=== PATIENT | female | born 1955 | race Caucasian/White ===

== ENCOUNTER 2016-12-28 12:25 | Inpatient (IN) ==
[2016-12-28] MEDS ORDERED: Neostigmine Methylsulfate 3 MG/3 ML SYRINGE ONE (12:44)
[2016-12-28] MEDS ORDERED: Lidocaine -MPF 4% 5 ML AMPUL ONE (12:44)
[2016-12-28] MEDS ORDERED: *HR* Propofol 200 MG/20 ML VIAL IVP ONE (12:44)
[2016-12-28] MEDS ORDERED: Dexamethasone 4 MG/ML VIAL ONE (12:44)
[2016-12-28] MEDS ORDERED: *HR* FentaNYL (PF) 100 MCG/2 ML VIAL ONE (12:44)
[2016-12-28] MEDS ORDERED: *HR* Rocuronium Bromide 50 MG/5 ML VIAL ONE (12:44)
[2016-12-28] MEDS ORDERED: *HR* Midazolam HCl 2 MG/2 ML VIAL ONE (12:44)
[2016-12-28] MEDS ORDERED: *HR* Succinylcholine 200 MG/10 ML VIAL IVP ONE (12:44)
[2016-12-28] MEDS ORDERED: Ondansetron 4 MG/2 ML VIAL ONE (12:44)
[2016-12-28] MEDS ORDERED: Lidocaine -MPF 2% 2 ML VIAL ONE (12:44)
[2016-12-28] MEDS ORDERED: Lidocaine -MPF 1% 2 ML VIAL ID ONE (12:46)
[2016-12-28] MEDS ORDERED: CeFAZolin Pre 2,000 MG/100 ML 2,000 MG/100 ML BAG IVPB ONE (12:46)
[2016-12-28] MEDS ORDERED: Albuterol 2.5 MG/3 ML NEBULIZER IH ONE (12:47)
[2016-12-28] MEDS ORDERED: Ringers Solution, Lactated 1,000 ML IVC SCH (13:00)
[2016-12-28] MEDS ORDERED: *HR* Labetalol 100 MG/20 ML MDV IVP PRN (13:58)
[2016-12-28] MEDS ORDERED: Famotidine 20 MG/2 ML VIAL IVP ONE (13:58)
[2016-12-28] MEDS ORDERED: Metoclopramide 10 MG/2 ML VIAL IVP ONE (13:58)
[2016-12-28] MEDS ORDERED: *HR* HYDROmorphone (PF) 1 MG/ML SYRINGE IVP PRN (13:58)
[2016-12-28] MEDS ORDERED: *HR* Promethazine 25 MG/ML VIAL IVP PRN (13:58)
[2016-12-28] MEDS ORDERED: Gabapentin 300 MG CAPSULE PO STA (13:59)
[2016-12-28] MEDS ORDERED: Acetaminophen IV 1,000 MG/100 ML INFUS..BTL IVPB ONE (13:59)
--- NOTE | 2016-12-28 14:03 | History & Physical Report ---
Date of Encounter: 12/28/16 Time of Encounter: 14:00 24 Hour HP Update - Instructions Instructions: If the History and Physical is less than 30 days old and was completed prior to A.M. admission and or procedure and has NOT been updated on calendar day of procedure please complete this update prior to performing procedure. - Update Patient reports changes in Medical Condition: No Changes in examination, assessment, or condition: No Changes in Medication: No Preop tests/diagnostics Reviewed: Yes Surgery Remains Indicated: Yes Consent for Planned Operative Procedure(s) Verified: Yes - Pre-Operative Checklist Preoperative Checklist Indicated: Yes Prophylactic Antibiotic Ordered: Yes Home Medications Include Beta Stephani: No Is VTE Prophylaxis Indicated?: Yes
--- NOTE | 2016-12-28 14:05 | Anesthesia Evaluation PreOp ---
Date of Encounter: 12/28/16 Time of Encounter: 14:02 - Past History Planned Operation: Lap Hiatal Hernia Repair Cardiac History: Other Pulmonary History: Smoker (quit 2 months ago), Asthma, COPD (maintained on Advair diskus, Albuterol Montelukast), Other (ECHO 10/2015 - LVEF 60%, No SWMA, PFO present with saline contrast injection. 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 RLS maintained on Requip ) Other Medical History: GERD (Hiatal hernia - maintained on Omeprazole), Other ( Celiac sprue [Gluten intolerance]) Anesthesia History: No Prior Anesthetic Complications, Past Anesthesia ( Cataracts 2013, Hyster, Lap Jana), Problems Alcohol Use: rarely Drug use: none Medications and Allergies Duloxetine [Cymbalta] 60 mg PO QAM 05/02/15 [History] Montelukast [Singulair] 10 mg PO DAILY 05/02/15 [History] Aspirin/Dipyridamole [Aggrenox 25 mg-200 mg Capsule] 1 each PO BID 10/15/15 [ History] Albuterol Neb [AccuNeb] 1.25 mg IH Q6H PRN 06/03/16 [History] Dapsone 50 - 75 mg PO DAILY 06/03/16 [History] Fluticasone/Salmeterol [Advair 500-50 Diskus] 1 puff IH BID 06/03/16 [History] Cetirizine HCl [Zyrtec] 10 mg PO DAILY 06/08/16 [History] Omeprazole [PriLOSEC] 40 mg PO BID 08/03/16 [History] Ropinirole [Requip] 1 - 2 mg PO HS PRN 08/03/16 [History] BuPROPion SR (12 HR) [Wellbutrin SR] 100 mg PO DAILY 11/16/16 [History] Brexpiprazole [Rexulti] 3 mg PO DAILY 12/28/16 [History] Allergies egg Adverse Reaction (Verified 12/28/16 13:04) See Comments nausea/vomiting metronidazole [From Flagyl] Adverse Reaction (Verified 12/28/16 13:04) Rash - Meds/Allergy Pre-op Review Medications Reviewed: Yes Allergies Reviewed: Yes Beta Blockers on Current Med List: No Anesthesia Results - Labs Laboratory Tests 12/21/16 12/21/16 12/21/16 12:02 12:02 15:37 WBC 11.4 H Hgb 11.4 L Hct 35.5 Plt Count 316 Sodium 134 L Potassium 4.1 Chloride 100 Carbon Dioxide 22 BUN 15 Creatinine 0.87 Est GFR (Non-Af Amer) > 60 - Imaging EKG: image reviewed (98bpm SR) Anesthesia Exam O2 Sat Height 1.57 m Height 1.57 m Height 1.57 m Weight 85.275 kg Weight 85.275 kg Weight 85.275 kg O2 Sat by Pulse Oximetry 93 O2 Sat by Pulse Oximetry 93 Vital Signs Temp Pulse Resp BP Pulse Ox 97.8 F 93 18 126/68 93 12/28/16 12:46 12/28/16 12:46 12/28/16 12:46 12/28/16 12:46 12/28/16 12:46 Height: 5'2" Weight: 188# BMI = 345 NPO (# of Hours): MNoc - HEENT Pupil (Motor): Pupils equal, EOMI Mallampati: III Teeth: Missing, Edentulous Oral Opening: Greater than 3 - CORD TIRE BUILDER LOC: Oriented CORD TIRE BUILDER Motor: Normal RUE, Normal LUE, Normal RLE, Normal LLE, Normal Face CORD TIRE BUILDER Sensory: Normal: RUE, LUE, RLE, LLE, Face - Cardiac Rhythm: Regular Murmur: None JVD: No - Pulmonary Breath Sounds: bilateral Clear Respiratory Effort: Symmetrical Anesthesia Assess/Plan ASA Score: 3 (OBesity, HTN, Asthma/COPD,) Modified Danielle Scale for Level of Consciousness: Cooperative, oriented, and tranquil Anesthetic Plan: General Monitoring Plan: Standard Monitors Recovery Plan: PACU Anes Supervising Prov Stmt: Pt seen/evaluated, R&B discussed, questions answered and consent obtained. Yu Mendez MD
[2016-12-28] MEDS ORDERED: *HR* HYDROmorphone 2 MG/ML SYRINGE ONE (15:10)
[2016-12-28] MEDS ORDERED: EPHEDrine 50 MG/ML VIAL ONE (15:22)
--- NOTE | 2016-12-28 16:53 | Operative Note ---
Date of procedure: 12/28/16 Pre-op diagnosis: Severe gastroesophageal reflux disease and hiatal hernia Post-op diagnosis: other (An severe gastroesophageal reflux disease and hiatal hernia. Number to esophageal motility disorder) Procedure: #1 laparoscopic repair of hiatal hernia #2 laparoscopic fundoplication (toupee 270) Anesthesia: RAINE Surgeon: Richard Loredo Estimated blood loss (cc): 10 Condition: stable Disposition: PACU Procedure in Detail: After informed consent patient is taken to the major operating suite placed in supine position given adequate general anesthetic. She is then placed into low lithotomy position. The abdomen was prepped and draped in sterile fashion utilizing ChloraPrep standard draping techniques. Timeout is taken Patient is identified. I made a vertical midline incision above the umbilicus and dissected down to level of fascia. I placed 2 traction stitches of 2-0 Vicryl and entered the abdominal cavity initially. I placed a Farrell trocar and insufflated to 15 mmHg pressure CO2. I then placed a 12 trocar in the right upper quadrant and a paddle retractor under the left lobe liver. This was secured with a retractor clamp. I then placed a 10 trocar in the right subxiphoid a 5 trocar in the left subxiphoid and a 10 trocar in the left subcostal. The nasogastric tube was removed and a lighted 56-Norwegian bougie was placed into the esophagus I divided the lesser omentum and the tissue anterior to the esophagus. I then swept the esophagus upwards and lateral and made dissection of the right abimbola of the diaphragm this gave an excellent technical result and I was able to visualize the left crura of the diaphragm at the end of this dissection. Photographic documentation was taken. Then grasp the cardia with a #10 [place] and retracted this to the right and downward. I divided the short gastrics between the cardia and the spleen using Harmonic scalpel and #10 clips. This gave excellent mobility of the cardia. Attention was then turned to the right crura of the diaphragm. I placed a Esteban drain around the gastroesophageal junction retracted the stomach laterally and inferiorly. I then close the hiatal hernia with 3 stitches of 2-0 [place]. I brought the cardia behind the gastroesophageal junction and secured this for the right half of the toupee 270. I placed one stitch between the fundoplication and the stomach just below the gastroesophageal junction. I placed 2 stitches between the fundoplication and the esophagus. I placed one stitch between the fundoplication and the diaphragm just on the right side of the esophagus. This completed the right side of the 270 degree wrap. I then brought the cardia to the left side of the esophagus. I placed one stitch just on the gastric side of the gastroesophageal junction. I placed 2 stitches between the cardia and the esophagus. I placed one stitch between the cardia and the diaphragm. This gave an excellent technical result for 270 degree wrap. There was no bleeding. Total blood loss 10 mL. All trochars were removed photographic documentation was taken. The bougie was removed patient tolerated the procedure well and was transferred to recovery in stable condition. Fascia was closed with 2-0 Vicryl and skin with 4-0 Vicryl.
[2016-12-28] MEDS ORDERED: Ipratropium/Albuterol Neb 3 ML ONE (17:18)
[2016-12-28] MEDS ORDERED: Ipratropium/Albuterol Neb 3 ML IH ONE (17:22)
[2016-12-28] MEDS ORDERED: *HR* Heparin 5,000 UNIT/ML VIAL SQ SCH (18:00)
--- NOTE | 2016-12-28 18:09 | Anesthesia Evaluation Post Op ---
Date of Encounter: 12/28/16 Time of Encounter: 18:07 - Vital Signs Vital Signs: Vital Signs/O2 Sat/Glucose, Most Current Temp Pulse Resp BP Pulse Ox 12/28/16 17:58 98 18 118/73 93 12/28/16 17:48 98.0 F 96 18 130/75 92 12/28/16 17:38 94 18 118/89 93 12/28/16 17:28 100 18 114/71 92 12/28/16 17:18 97.5 F L 106 18 125/98 92 12/28/16 17:08 93 16 124/84 94 12/28/16 16:58 93 16 124/84 94 12/28/16 16:48 97.3 F L 96 16 132/79 96 - Lungs Lungs: Wheezes, Treatment Ordered - Airway Airway: Non-obstructed - Cardiovascular Regular Rate - Mental Status Mental Status: Alert & Oriented, Answers Appropriately, Asleep with brisk response to light stimulation - Pain Pain Scale: 0 Pain Scale used: Numeric (1 - 10) - Nausea Vomiting Nausea Vomiting: Not Present - Hydration Hydration: NPO, Has not voided - Discharge PostOp Status: Transfer Patient to floor Anes Supervising Prov Stmt: Pt seen/evaluated, VSS and pt has met criteria for discharge to floor. 24 continuous pulse ox for overnight ordered. - MD Andrea
[2016-12-28] MEDS ORDERED: rOPINIRole 1 MG TABLET PO PRN (19:01)
[2016-12-28] MEDS ORDERED: *HR* OxyCODONE/APAP 5/325 TABLET PO PRN (19:01)
[2016-12-29] MEDS: Ondansetron 4 MG/2 ML VIAL IVP PRN ×3 (02:32→20:23)
[2016-12-29] MEDS: 0.9 % Sodium Chloride 1,000 ML IVC SCH ×2 (02:34→23:52)
[2016-12-29] MEDS: *HR* Promethazine 25 MG/ML VIAL IVP PRN ×2 (05:02→22:29)
[2016-12-29] MEDS: *HR* Heparin 5,000 UNIT/ML VIAL SQ SCH ×2 (05:07→17:07)
[2016-12-29 05:12] LABS: Basophils % 0.1 %; Hematocrit 32.6 % (35.3-44.9); Hemoglobin 10.3 g/dL (11.5-15.4); Immature Granulocytes % 0.6 % (0-4); Lymphocytes # 1.2 K/mcL (0.6-4.6); Lymphocytes % 5.5 %; Mean Corpuscular HGB Conc 31.6 g/dL (31.6-35.5); Mean Corpuscular Hemoglobin 31.8 pg (28.0-33.3); Mean Corpuscular Volume 100.6 fL (83.0-100.0); Mean Platelet Volume 9.9 fL (9.4-12.4); Monocytes # 2.2 K/mcL (0.0-1.3); Monocytes % 10.2 %; Neutrophils # 17.6 K/mcL (1.6-8.9); Platelet Count 251 K/mcL (140-400); Red Blood Count 3.24 M/mcL (3.82-4.97); Red Cell Distribution Width 12.8 % (11.5-14.5); Segmented Neutrophils % 83.6 %
[2016-12-29 05:28] LABS: BUN/Creatinine Ratio 15 (6-26); Blood Urea Nitrogen 13 mg/dL (7-20); Calcium 8.9 mg/dL (8.6-10.8); Carbon Dioxide 23 mEq/L (19-29); Chloride 103 mEq/L (98-109); Glucose 124 mg/dL (70-99); Osmolality,Calculated 286 (280-300); Potassium 4.3 mEq/L (3.5-4.5); Sodium 137 mEq/L (136-145); eGFR For African Americans > 60 (> 60); eGFR For Non-African Americans > 60 (> 60)
[2016-12-29] MEDS: *HR* OxyCODONE/APAP 5/325 TABLET PO PRN ×3 (08:20→22:19)
[2016-12-29] MEDS: BuPROPion SR (12 HR) 100 MG TABLET PO SCH (08:21)
[2016-12-29] MEDS: (Brexpiprazole [Rexulti] 3 MG) PO SCH (08:22)
[2016-12-29] MEDS: ceFAZolin 2,000 MG in D5% in Water 100 ML IVPB SCH ×2 (09:06→17:07)
--- NOTE | 2016-12-29 13:52 | General Surgery Progress Note ---
Date of Encounter: 12/29/16 Time of Encounter: 13:30 - Assessment and Plan (1) Hiatal hernia without gangrene and obstruction Current Visit: Yes Status: Acute The patient is postoperative day 1 from laparoscopic hiatal hernia repair in 270 degrees partial fundoplication. She has had no reflux. She did have a elevated white blood cell count and some postoperative nausea. We will keep her in the hospital today for observation and hydration. Subjective Narrative: The patient is postoperative day one laparoscopic Seble fundoplication and 270 degree toupee Fundoplication. Last night for the first night many years she had no reflux symptoms. Today she is having difficulty with dry heaves and nausea. She is not vomiting. She is able to drink clear liquids. She denies shakes chills or fever. She denies chest pain. White blood cell count elevated during the postop period likely leukemoid reaction and the margination Objective Vital Signs - Last 8 Hours Temp Pulse Resp BP Pulse Ox 12/29/16 10:07 98.2 F 93 17 137/76 95 12/29/16 08:28 97 12/29/16 06:32 98.1 F 73 17 128/70 97 Intake and Output 12/28/16 12/29/16 12/29/16 23:59 07:59 15:59 Intake Total 960 / 960 1305 / 1305 Output Total 350 / 350 0 / 0 Balance -10 / -10 610 / 610 1305 / 1305 Intake: IV Fluids 545 / 545 0.9 % Sodium Chloride 1, 445 / 445 000 ML @ 50 mls/hr IVC . Q20H BK Rx#:[id number] Ancef 2,000 MG In 100 / 100 Dextrose 5% 100 ML @ 200 mls/hr IVPB Q8HR BK Rx#: [id number] Oral 960 / 960 760 / 760 Output: Urine 350 / 350 0 / 0 Estimated Blood Loss Other: # Voids 3 Weight 84.504 kg Patient Weight 12/29/16 23:59 Weight 84.504 kg - General physical appearance well developed, well nourished - Respiratory normal expansion, normal respiratory effort, clear to percussion, clear to auscultation - Cardiovascular Cardiovascular exam: Present: RRR, no murmurs/rubs/gallops - Neurologic normal coordination, normal sensation - Labs 12/29/16 04:27 12/29/16 04:27 Diabetes panel 12/29/16 Range/Units 04:27 Sodium 137 (136-145) mEq/L Potassium 4.3 (3.5-4.5) mEq/L Chloride 103 (98-109) mEq/L Carbon Dioxide 23 (19-29) mEq/L BUN 13 (7-20) mg/dL Creatinine 0.88 (0.57-1.11) mg/dL Glucose 124 H (70-99) mg/dL Calcium 8.9 (8.6-10.8) mg/dL Calcium panel 12/29/16 Range/Units 04:27 Calcium 8.9 (8.6-10.8) mg/dL Pituitary panel 12/29/16 Range/Units 04:27 Sodium 137 (136-145) mEq/L Potassium 4.3 (3.5-4.5) mEq/L Chloride 103 (98-109) mEq/L Carbon Dioxide 23 (19-29) mEq/L BUN 13 (7-20) mg/dL Creatinine 0.88 (0.57-1.11) mg/dL Glucose 124 H (70-99) mg/dL Calcium 8.9 (8.6-10.8) mg/dL Adrenal panel 12/29/16 Range/Units 04:27 Sodium 137 (136-145) mEq/L Potassium 4.3 (3.5-4.5) mEq/L Chloride 103 (98-109) mEq/L Carbon Dioxide 23 (19-29) mEq/L BUN 13 (7-20) mg/dL Creatinine 0.88 (0.57-1.11) mg/dL Glucose 124 H (70-99) mg/dL Calcium 8.9 (8.6-10.8) mg/dL - VTE Documentation of Mechanical Device: Intermittent pneumatic compression device Consult Discharge Plan - Plan Referrals: Richard Loredo MD [Partnered Physician] - 01/17/17 12:15 pm Carmelita Gallardo MD [Primary Care Provider] -
[2016-12-29] MEDS: *HR* HYDROmorphone (PF) 1 MG/ML SYRINGE IVP PRN ×2 (20:24→23:47)
[2016-12-30] MEDS: *HR* HYDROmorphone (PF) 1 MG/ML SYRINGE IVP PRN (03:58)
[2016-12-30 04:41] LABS: Hematocrit 32.5 % (35.3-44.9); Hemoglobin 10.3 g/dL (11.5-15.4); Mean Corpuscular HGB Conc 31.7 g/dL (31.6-35.5); Mean Corpuscular Hemoglobin 31.7 pg (28.0-33.3); Mean Platelet Volume 9.8 fL (9.4-12.4); Platelet Count 237 K/mcL (140-400); Red Blood Count 3.25 M/mcL (3.82-4.97); Red Cell Distribution Width 12.5 % (11.5-14.5)
[2016-12-30] MEDS: *HR* Heparin 5,000 UNIT/ML VIAL SQ SCH (06:13)
[2016-12-30 07:11] VITALS: BP 130/81
--- NOTE | 2016-12-30 07:13 | Discharge Summary ---
Date of Encounter: 12/30/16 Time of Encounter: 07:10 - Discharge Diagnosis (1) Hiatal hernia without gangrene and obstruction Priority: Primary Status: Acute Comments: The patient underwent Laparoscopic hiatal hernai repair and 270 Toupee fundoplication - Discharge Medications Prescriptions: OxyCODONE/APAP 5/325 [Percocet 5/325 MG] 1 each PO Q4HR PRN #36 tablet PRN Reason: Pain (6-10) Home Medications: Duloxetine [Cymbalta] 60 mg PO QAM 05/02/15 [History] Montelukast [Singulair] 10 mg PO DAILY 05/02/15 [History] Aspirin/Dipyridamole [Aggrenox 25 mg-200 mg Capsule] 1 each PO BID 10/15/15 [ History] Albuterol Neb [AccuNeb] 1.25 mg IH Q6H PRN 06/03/16 [History] Dapsone 50 - 75 mg PO DAILY 06/03/16 [History] Fluticasone/Salmeterol [Advair 500-50 Diskus] 1 puff IH BID 06/03/16 [History] Cetirizine HCl [Zyrtec] 10 mg PO DAILY 06/08/16 [History] Omeprazole [PriLOSEC] 40 mg PO BID 08/03/16 [History] Ropinirole [Requip] 1 - 2 mg PO HS PRN 08/03/16 [History] BuPROPion SR (12 HR) [Wellbutrin SR] 100 mg PO DAILY 11/16/16 [History] Brexpiprazole [Rexulti] 3 mg PO DAILY 12/28/16 [History] OxyCODONE/APAP 5/325 [Percocet 5/325 MG] 1 each PO Q4HR PRN #36 tablet 12/30/16 [Rx] Allergies/Adverse Reactions: Allergies egg Adverse Reaction (Verified 12/28/16 13:04) See Comments nausea/vomiting metronidazole [From Flagyl] Adverse Reaction (Verified 12/28/16 13:04) Rash General Surgery Exam Initial Vital Signs Temp Pulse Resp BP Pulse Ox 97.8 F 93 18 126/68 93 12/28/16 12:46 12/28/16 12:46 12/28/16 12:46 12/28/16 12:46 12/28/16 12:46 - General physical appearance well developed, well nourished, no distress - Cardiovascular Cardiovascular exam: Present: RRR, 15, 16 - Abdomen Abdomen general surgery: Present: bowel sounds present, soft, non tender - Incision Incision: Present: clean and dry - Neurologic Present: CN 2-12 grossly intact, normal coordination, normal sensation - Psychiatric Psychiatric general surgery: Present: appropriate, oriented to person, oriented to place, oriented to time, speech is normal, memory intact Date of admission: 12/28/16 18:32 Primary care physician: Carmelita Gallardo Discharging clinician: Richard Loredo Anticipated date of discharge: 12/30/16 - Patient Status Disposition: Home, Self-Care Condition: Good Functional capacity at discharge: independent ambulation Overall status at discharge: patient is progressing back to baseline - Discharge Instructions Follow Up With: Richard Loredo MD [Partnered Physician] - 01/17/17 12:15 pm Carmelita Gallardo MD [Primary Care Provider] - - Diet and Activity Activity: resume usual activities as tolerated Diet: other (full liquid for 2 weeks) - Hospital Course Hospital course: Ms. Higginbotham is a 61 year old female underwent laparoscopic hiatal hernia repair and 270 fundoplication. She had post-operative nausea and wretching. All symptoms resolved, she is now ready for discharge Time spent discussing smoking cessation with patient: 3 to 10 minutes - Time Spent with Patient Total time spent providing and/or coordinating discharge services: Less than 30 minutes Specific discharge activities: Full liquid diet for 2 weeks, then advance. No bread or fibrous meats Procedures and tests throughout hospitalization: Laparoscopic hiatal hernia repair and 270 Toupee fundoplication Labs on day of discharge: Labs from last 24 hours 12/30/16 04:12 WBC 13.7 H RBC 3.25 L Hgb 10.3 L Hct 32.5 L MCV 100.0 MCH 31.7 MCHC 31.7 RDW 12.5 Plt Count 237 MPV 9.8
[2016-12-30] MEDS: BuPROPion SR (12 HR) 100 MG TABLET PO SCH (07:59)
[2016-12-30] MEDS: *HR* OxyCODONE/APAP 5/325 TABLET PO PRN (07:59)
[2016-12-30] MEDS: (Brexpiprazole [Rexulti] 3 MG) PO SCH (08:00)
== END 2016-12-30 08:23 | disposition home or self-care (01) | DRG 328 ==
LOC: SAMDAY 12:25 → 3ANU 18:32
PROVIDERS: ADMIT Hospitalist; ATTEND Surgery

== ENCOUNTER 2019-07-31 16:48 | Inpatient (IN) ==
[2019-07-31] MEDS ORDERED: *HR* LORazepam 2 MG/ML VIAL IVP ONE (17:06)
[2019-07-31] MEDS ORDERED: diazePAM 10 MG/2 ML SYRINGE IVP STA (18:06)
[2019-07-31 18:40] LABS: Basophils # 0.1 K/mcL (0.0-0.2); Basophils % 0.6 %; Eosinophils # 0.6 K/mcL (0.0-0.6); Eosinophils % 5.8 %; Hematocrit 26.3 % (35.3-44.9); Hemoglobin 8.2 g/dL (11.5-15.4); Immature Granulocytes % 0.3 % (0-4); Lymphocytes # 2.3 K/mcL (0.6-4.6); Lymphocytes % 22.9 %; Mean Corpuscular HGB Conc 31.2 g/dL (31.6-35.5); Mean Corpuscular Hemoglobin 33.1 pg (28.0-33.3); Mean Platelet Volume 9.6 fL (9.4-12.4); Monocytes % 10.5 %; Platelet Count 241 K/mcL (140-400); Red Blood Count 2.48 M/mcL (3.82-4.97); Red Cell Distribution Width 15.3 % (11.5-14.5); Segmented Neutrophils % 59.9 %
[2019-07-31 18:55] LABS: BUN/Creatinine Ratio 20 (6-26); Blood Urea Nitrogen 17 mg/dL (8-23); Calcium 8.6 mg/dL (8.6-10.3); Carbon Dioxide 27 mEq/L (23-29); Chloride 109 mEq/L (98-107); Glucose 91 mg/dL (70-105); Osmolality,Calculated 295 (280-300); Potassium 3.8 mEq/L (3.5-5.1); Sodium 142 mEq/L (136-145); eGFR For African Americans > 60 (> 60); eGFR For Non-African Americans > 60 (> 60)
[2019-07-31 19:00] LABS: Bilirubin,Urine Negative (Negative); Blood,Urine Negative (Negative); Clarity,Urine Clear (Clear); Color,Urine Yellow (Yellow); Glucose,Urine (UA) Normal (Normal); Ketones,Urine Negative (Negative); Leukocyte Esterase,Urine Small (Negative); Nitrite,Urine Negative (Negative); Protein,Urine Negative (Neg-Trace); Urobilinogen,Urine Normal (Normal)
[2019-07-31 19:02] LABS: Bacteria,Urine None Seen per hpf (None-Few); Hyaline Casts,Urine None Seen per lpf (None-Few); RBC,Urine 0-3 per hpf (0-3); Squamous Epithelial Cell,Urine Few per lpf (None-Few)
[2019-07-31] MEDS ORDERED: Naloxone 0.4 MG/ML INJ IVP PRN (21:18)
[2019-07-31] MEDS ORDERED: diazePAM 10 MG/2 ML SYRINGE IVP ONE (22:27)
[2019-08-01] MEDS: rOPINIRole 1 MG TABLET PO SCH ×2 (01:09→20:10)
[2019-08-01 05:20] LABS: Amphetamine Screen,Urine Negative ng/mL (Cutoff=1000); Barbiturate Screen,Urine Negative ng/mL (Cutoff=200); Benzodiazepines Screen,Urine Positive ng/mL (Cutoff=200); Cannabinoid Screen,Urine Negative ng/mL (Cutoff = 50); Cocaine Screen,Urine Negative ng/mL (Cutoff= 300); Opiate Screen,Urine Negative ng/mL (Cutoff=300); Phencyclidine Screen,Urine Negative ng/mL (Cutoff=25)
[2019-08-01 06:46] LABS: Basophils # 0.1 K/mcL (0.0-0.2); Basophils % 0.7 %; Eosinophils # 0.5 K/mcL (0.0-0.6); Eosinophils % 5.6 %; Hematocrit 27.1 % (35.3-44.9); Hemoglobin 8.7 g/dL (11.5-15.4); Immature Granulocytes % 0.4 % (0-4); Lymphocytes # 1.3 K/mcL (0.6-4.6); Lymphocytes % 15.3 %; Mean Corpuscular HGB Conc 32.1 g/dL (31.6-35.5); Mean Corpuscular Hemoglobin 33.5 pg (28.0-33.3); Mean Corpuscular Volume 104.2 fL (83.0-100.0); Mean Platelet Volume 9.5 fL (9.4-12.4); Monocytes % 11.5 %; Neutrophils # 5.7 K/mcL (1.6-8.9); Platelet Count 263 K/mcL (140-400); Red Cell Distribution Width 15.7 % (11.5-14.5); Segmented Neutrophils % 66.5 %; White Blood Count 8.5 K/mcL (4.3-11.1)
[2019-08-01 06:49] LABS: INR 1.1; Prothrombin Time 12.2 Seconds (9.4-12.1)
[2019-08-01 06:52] LABS: Activated Partial Thrombo Time 31.1 Seconds (26.0-36.0)
[2019-08-01 07:01] LABS: BUN/Creatinine Ratio 22 (6-26); Blood Urea Nitrogen 15 mg/dL (8-23); Calcium 8.7 mg/dL (8.6-10.3); Carbon Dioxide 27 mEq/L (23-29); Chloride 106 mEq/L (98-107); Glucose 91 mg/dL (70-105); Magnesium 2.2 mg/dL (1.6-2.6); Osmolality,Calculated 292 (280-300); Phosphorous 4.3 mg/dL (2.7-4.5); Potassium 3.7 mEq/L (3.5-5.1); Sodium 141 mEq/L (136-145); eGFR For African Americans > 60 (> 60); eGFR For Non-African Americans > 60 (> 60)
[2019-08-01 07:04] LABS: % Iron Saturation 17 % (15-50); Iron 47 mcg/dL (50-170); Transferrin 202 mg/dL (203-362)
[2019-08-01 07:17] LABS: Ferritin 272 ng/mL (10-120)
[2019-08-01] MEDS ORDERED: *HR* LORazepam 2 MG/ML VIAL IVP PRN (09:51)
[2019-08-01] MEDS ORDERED: MethylPREDNISolone 40 MG/ML VIAL IVP ONE ×2 (10:01→11:30)
[2019-08-01] MEDS: Acetaminophen 325 MG TABLET PO PRN ×2 (11:35→18:49)
[2019-08-01] MEDS ORDERED: *HR* LORazepam 2 MG/ML VIAL IVP SCH (12:00)
[2019-08-01 13:54] LABS: Creatine Kinase 156 Units/L (30-223)
[2019-08-01 17:55] LABS: C-Reactive Protein < 5 mg/L (Less than 10)
[2019-08-01] MEDS: diazePAM 2 MG TABLET PO SCH ×2 (18:44→20:10)
[2019-08-02] MEDS: diazePAM 2 MG TABLET PO SCH ×3 (08:46→20:23)
[2019-08-02] MEDS: Acetaminophen 325 MG TABLET PO PRN (08:53)
[2019-08-02 09:53] LABS: Hematocrit 27.4 % (35.3-44.9); Hemoglobin 8.6 g/dL (11.5-15.4); Mean Corpuscular HGB Conc 31.4 g/dL (31.6-35.5); Mean Corpuscular Hemoglobin 33.6 pg (28.0-33.3); Mean Platelet Volume 9.7 fL (9.4-12.4); Platelet Count 251 K/mcL (140-400); Red Blood Count 2.56 M/mcL (3.82-4.97); Red Cell Distribution Width 15.7 % (11.5-14.5); White Blood Count 10.2 K/mcL (4.3-11.1)
[2019-08-02 10:18] LABS: Thyroid Stimulating Hormone 1.718 mcIU/mL (0.340-5.600)
[2019-08-02] MEDS ORDERED: *HR* Midazolam HCl 2 MG/2 ML VIAL IVP ONE (10:23)
[2019-08-02] MEDS ORDERED: *HR* FentaNYL (PF) 100 MCG/2 ML VIAL IVP ONE (10:23)
[2019-08-02] MEDS ORDERED: 0.9 % Sodium Chloride 500 ML ONE (10:26)
[2019-08-02 10:28] LABS: Folate 15.2 ng/mL (3.0-16.0)
[2019-08-02] MEDS ORDERED: *HR* Midazolam HCl 2 MG/2 ML VIAL ONE (10:33)
[2019-08-02] MEDS ORDERED: *HR* FentaNYL (PF) 100 MCG/2 ML VIAL ONE (10:33)
[2019-08-02] MEDS ORDERED: Ondansetron 4 MG/2 ML VIAL IVP ONE (10:57)
[2019-08-02] MEDS ORDERED: Ondansetron 4 MG/2 ML VIAL ONE (10:59)
[2019-08-02] MEDS ORDERED: *HR* LORazepam 2 MG/ML VIAL IVP ONE (12:20)
[2019-08-02] MEDS: rOPINIRole 1 MG TABLET PO SCH (20:23)
[2019-08-02] MEDS ORDERED: Scopolamine Patch 1.5 MG PATCH.TD72 TD ONE (21:55)
[2019-08-03 06:53] LABS: Hematocrit 31.4 % (35.3-44.9); Mean Corpuscular HGB Conc 31.8 g/dL (31.6-35.5); Mean Corpuscular Hemoglobin 34.2 pg (28.0-33.3); Mean Corpuscular Volume 107.5 fL (83.0-100.0); Mean Platelet Volume 11.2 fL (9.4-12.4); Platelet Count 229 K/mcL (140-400); Red Blood Count 2.92 M/mcL (3.82-4.97); Red Cell Distribution Width 15.9 % (11.5-14.5); White Blood Count 8.1 K/mcL (4.3-11.1)
[2019-08-03 07:22] VITALS: BP 144/69
[2019-08-03] MEDS: diazePAM 2 MG TABLET PO SCH (08:48)
[2019-08-05 05:00] LABS: Kappa Qnt Free Light Chains 1.94 mg/dL (0.33-1.94); Lambda Qnt Free Light Chains 1.41 mg/dL (0.57-2.63)
[2019-08-05 06:35] LABS: Beta Globulin (PEP) 0.66 g/dL (0.48-1.10)
[2019-08-05 11:40] LABS: IFE Reflexed NOT DONE
== END 2019-08-03 12:00 | disposition home or self-care (01) | DRG 57 ==
LOC: EMEROOARM 16:48 → 2ANU 16:48 → SUATTDRO 21:43 → 2ANU 22:18
PROVIDERS: ADMIT Internal Medicine; ATTEND Family Medicine

== ENCOUNTER 2019-08-29 17:01 | Observation (INO) ==
[2019-08-29] MEDS ORDERED: *HR* LORazepam 2 MG/ML VIAL IVP ONE (18:26)
[2019-08-29] MEDS ORDERED: 0.9 % Sodium Chloride 1,000 ML IVC ONE (19:14)
[2019-08-29] MEDS ORDERED: Haloperidol Lactate 5 MG/ML VIAL IVP ONE (19:25)
[2019-08-29 19:33] LABS: Hematocrit 32.8 % (35.3-44.9); Hemoglobin 10.6 g/dL (11.5-15.4); Mean Corpuscular HGB Conc 32.3 g/dL (31.6-35.5); Mean Corpuscular Hemoglobin 33.1 pg (28.0-33.3); Mean Corpuscular Volume 102.5 fL (83.0-100.0); Mean Platelet Volume 9.9 fL (9.4-12.4); Platelet Count 212 K/mcL (140-400); Red Cell Distribution Width 11.7 % (11.5-14.5); White Blood Count 9.9 K/mcL (4.3-11.1)
[2019-08-29 19:39] LABS: Bilirubin,Urine Small (Negative); Blood,Urine Negative (Negative); Clarity,Urine Clear (Clear); Color,Urine Yellow (Yellow); Glucose,Urine (UA) Normal (Normal); Ketones,Urine Negative (Negative); Leukocyte Esterase,Urine Negative (Negative); Nitrite,Urine Negative (Negative); PH,Urine 5.5 pH Units (5.0-8.0); Protein,Urine Negative (Neg-Trace); Specific Gravity,Urine 1.021 (1.010-1.025); Urobilinogen,Urine Normal (Normal)
[2019-08-29 19:48] LABS: Amphetamine Screen,Urine Negative ng/mL (Cutoff=1000); Barbiturate Screen,Urine Negative ng/mL (Cutoff=200); Benzodiazepines Screen,Urine Positive ng/mL (Cutoff=200); Cannabinoid Screen,Urine Negative ng/mL (Cutoff = 50); Cocaine Screen,Urine Negative ng/mL (Cutoff= 300); Opiate Screen,Urine Negative ng/mL (Cutoff=300); Phencyclidine Screen,Urine Negative ng/mL (Cutoff=25)
[2019-08-29 19:52] LABS: BUN/Creatinine Ratio 28 (6-26); Blood Urea Nitrogen 21 mg/dL (8-23); Calcium 8.9 mg/dL (8.6-10.3); Carbon Dioxide 25 mEq/L (23-29); Chloride 108 mEq/L (98-107); Creatine Kinase 66 Units/L (30-223); Glucose 110 mg/dL (70-105); Osmolality,Calculated 298 (280-300); Potassium 3.3 mEq/L (3.5-5.1); Sodium 142 mEq/L (136-145); eGFR For African Americans > 60 (> 60); eGFR For Non-African Americans > 60 (> 60)
[2019-08-29] MEDS ORDERED: 0.9 % Sodium Chloride 1,000 ML IVC SCH (22:00)
[2019-08-29] MEDS ORDERED: Naloxone 0.4 MG/ML INJ IVP PRN (22:00)
[2019-08-29] MEDS ORDERED: rOPINIRole 1 MG TABLET PO PRN (22:29)
[2019-08-29] MEDS ORDERED: Scopolamine Patch 1.5 MG PATCH.TD72 TD PRN (22:29)
[2019-08-29] MEDS ORDERED: diazePAM 10 MG/2 ML SYRINGE IVP ONE (22:34)
[2019-08-29] MEDS: rOPINIRole 1 MG TABLET PO PRN (22:53)
[2019-08-29] MEDS: traZODone 50 MG TABLET PO SCH (23:36)
[2019-08-30 02:14] LABS: Hematocrit 31.1 % (35.3-44.9); Mean Corpuscular HGB Conc 32.2 g/dL (31.6-35.5); Mean Corpuscular Volume 102.6 fL (83.0-100.0); Mean Platelet Volume 10.2 fL (9.4-12.4); Platelet Count 196 K/mcL (140-400); Red Blood Count 3.03 M/mcL (3.82-4.97); Red Cell Distribution Width 11.7 % (11.5-14.5); White Blood Count 9.7 K/mcL (4.3-11.1)
[2019-08-30 02:30] LABS: BUN/Creatinine Ratio 28 (6-26); Blood Urea Nitrogen 18 mg/dL (8-23); Calcium 8.7 mg/dL (8.6-10.3); Carbon Dioxide 24 mEq/L (23-29); Chloride 112 mEq/L (98-107); Glucose 91 mg/dL (70-105); Magnesium 1.9 mg/dL (1.6-2.6); Osmolality,Calculated 293 (280-300); Phosphorous 3.7 mg/dL (2.7-4.5); Potassium 3.2 mEq/L (3.5-5.1); Sodium 141 mEq/L (136-145); eGFR For African Americans > 60 (> 60); eGFR For Non-African Americans > 60 (> 60)
[2019-08-30] MEDS: BuPROPion SR (12 HR) 100 MG TABLET PO SCH (09:24)
[2019-08-30] MEDS ORDERED: diazePAM 10 MG/2 ML SYRINGE IVP STA ×2 (11:10→11:30)
[2019-08-30 14:00] LABS: Thyroid Stimulating Hormone 3.122 mcIU/mL (0.340-5.600)
[2019-08-30 16:58] LABS: Folate 13.7 ng/mL (3.0-16.0)
[2019-08-30] MEDS: rOPINIRole 1 MG TABLET PO PRN (20:14)
[2019-08-30] MEDS: traZODone 50 MG TABLET PO SCH (20:15)
[2019-08-30] MEDS: Fluticasone Propionate Nasal 50 MCG/SPRAY BOTTLE NS SCH (20:20)
[2019-08-31 03:39] LABS: Hematocrit 34.3 % (35.3-44.9); Mean Corpuscular HGB Conc 32.1 g/dL (31.6-35.5); Mean Corpuscular Hemoglobin 32.3 pg (28.0-33.3); Mean Corpuscular Volume 100.6 fL (83.0-100.0); Mean Platelet Volume 10.3 fL (9.4-12.4); Platelet Count 201 K/mcL (140-400); Red Blood Count 3.41 M/mcL (3.82-4.97); Red Cell Distribution Width 11.9 % (11.5-14.5); White Blood Count 6.5 K/mcL (4.3-11.1)
[2019-08-31 03:58] LABS: BUN/Creatinine Ratio 21 (6-26); Blood Urea Nitrogen 13 mg/dL (8-23); Calcium 8.9 mg/dL (8.6-10.3); Carbon Dioxide 24 mEq/L (23-29); Chloride 110 mEq/L (98-107); Glucose 90 mg/dL (70-105); Osmolality,Calculated 292 (280-300); Potassium 3.7 mEq/L (3.5-5.1); Sodium 141 mEq/L (136-145); eGFR For African Americans > 60 (> 60); eGFR For Non-African Americans > 60 (> 60)
[2019-08-31] MEDS: BuPROPion SR (12 HR) 100 MG TABLET PO SCH (08:52)
[2019-08-31] MEDS: Fluticasone Propionate Nasal 50 MCG/SPRAY BOTTLE NS SCH (10:23)
[2019-08-31 11:52] VITALS: BP 129/86
== END 2019-08-31 15:31 | disposition home or self-care (01) ==
LOC: 2NENU 17:01 → EMEROOARM 17:01 → SUATTDRO 20:38 → 2NENU 20:54
PROVIDERS: ADMIT Internal Medicine; ATTEND Internal Medicine

== ENCOUNTER 2021-12-09 19:02 | Observation (INO) ==
[2021-12-09] MEDS ORDERED: Perflutren Lipid Microsphere 1.3 ML in 0.9 % Sodium Chloride 8.7 ML IVP PRN (22:20)
[2021-12-09] MEDS ORDERED: Acetaminophen 325 MG TABLET PO PRN (22:20)
[2021-12-09] MEDS ORDERED: Naloxone 0.4 MG/ML INJ IVP PRN (22:20)
[2021-12-09] MEDS ORDERED: *HR* HYDROcodone/Acet 5/325 mg TABLET PO PRN (22:20)
[2021-12-09] MEDS ORDERED: *HR* OxyCODONE Immed Rel 5 MG TABLET PO PRN (22:20)
[2021-12-09] MEDS ORDERED: Ondansetron ODT 4 MG TAB.RAPDIS SL PRN (22:20)
[2021-12-09] MEDS ORDERED: Melatonin 3 MG TABLET PO PRN (22:20)
[2021-12-09] MEDS ORDERED: 0.9 % Sodium Chloride 1,000 ML IVC SCH (22:30)
[2021-12-09 23:06] LABS: Bilirubin,Urine Negative (Negative); Blood,Urine Negative (Negative); Clarity,Urine Clear (Clear); Color,Urine Light-Yellow (Yellow); Glucose,Urine (UA) Normal (Normal); Ketones,Urine Negative (Negative); Leukocyte Esterase,Urine Trace (Negative); Nitrite,Urine Negative (Negative); Protein,Urine Negative (Neg-Trace); Specific Gravity,Urine 1.006 (1.010-1.025); Squamous Epithelial Cell,Urine Few per hpf (None-Few); Urobilinogen,Urine Normal (Normal)
[2021-12-09] MEDS ORDERED: Ipratropium/Albuterol Neb 3 ML IH PRN (23:14)
[2021-12-09 23:15] LABS: Amphetamine Screen,Urine Negative ng/mL (Cutoff=1000); Barbiturate Screen,Urine Negative ng/mL (Cutoff=200); Benzodiazepines Screen,Urine Negative ng/mL (Cutoff=200); Cannabinoid Screen,Urine Negative ng/mL (Cutoff = 50); Cocaine Screen,Urine Negative ng/mL (Cutoff= 300); Opiate Screen,Urine Negative ng/mL (Cutoff=300); Phencyclidine Screen,Urine Negative ng/mL (Cutoff=25)
[2021-12-09] MEDS ORDERED: lamoTRIgine 25 MG TABLET PO SCH (23:45)
[2021-12-09] MEDS ORDERED: traZODone 50 MG TABLET PO SCH (23:45)
[2021-12-10] MEDS: Pregabalin 50 MG CAPSULE PO SCH ×2 (00:15→08:46)
[2021-12-10] MEDS: BuPROPion SR (12 HR) 100 MG TABLET PO SCH ×2 (00:15→09:01)
[2021-12-10 03:05] LABS: Hematocrit 31.1 % (35.3-44.9); Hemoglobin 9.6 g/dL (11.5-15.4); Mean Corpuscular HGB Conc 30.9 g/dL (31.6-35.5); Mean Corpuscular Hemoglobin 31.2 pg (28.0-33.3); Mean Platelet Volume 10.4 fL (9.4-12.4); Platelet Count 197 K/mcL (140-400); Red Blood Count 3.08 M/mcL (3.82-4.97); Red Cell Distribution Width 14.6 % (11.5-14.5); White Blood Count 4.9 K/mcL (4.3-11.1)
[2021-12-10 03:13] VITALS: TEMP 97.9
[2021-12-10 03:13] LABS: INR 1.2
[2021-12-10 03:15] LABS: Activated Partial Thrombo Time 31.4 Seconds (26.0-36.0); Alanine Aminotransferase 10 Units/L (7-52); Albumin 3.7 g/dL (3.5-5.7); Albumin/Globulin Ratio 1.8 (1.1-2.2); Alkaline Phosphatase 90 Units/L (34-104); Aspartate Amino Transferase 14 Units/L (13-39); BUN/Creatinine Ratio 10 (6-26); Bilirubin,Total 0.7 mg/dL (0.3-1.0); Blood Urea Nitrogen 8 mg/dL (8-23); Calcium 8.8 mg/dL (8.6-10.3); Carbon Dioxide 27 mEq/L (23-29); Chloride 110 mEq/L (98-107); Chol/HDL Ratio 3.1 (0-4.9); Cholesterol 141 mg/dL (< 200); Globulin 2.1 g/dL (2.4-3.5); Glucose 118 mg/dL (70-105); HDL Cholesterol 45 mg/dL (40-59); LDL Cholesterol,Calculated 83 mg/dL (< 100); LDL Cholesterol,Direct 89 mg/dL (75-193); Osmolality,Calculated 295 (280-300); Phosphorous 4.2 mg/dL (2.7-4.5); Potassium 3.6 mEq/L (3.5-5.1); Sodium 143 mEq/L (136-145); Total Protein 5.8 g/dL (6.4-8.9); Triglycerides 67 mg/dL (< 150); Troponin I < 0.03 ng/mL (< 0.04); eGFR For African Americans > 60 (> 60); eGFR For Non-African Americans > 60 (> 60)
[2021-12-10 03:29] LABS: Thyroid Stimulating Hormone 2.144 mcIU/mL (0.340-5.600)
[2021-12-10] MEDS ORDERED: Isovue-370 500 ML BOTTLE IVP ONE (07:42)
[2021-12-10] MEDS ORDERED: ARIPiprazole 2 MG TABLET PO SCH (09:00)
[2021-12-10 10:55] LABS: Hemoglobin A1C < 3.7 %
[2021-12-10 11:26] VITALS: BP 125/84; PULSE 84; O2SAT 90
== END 2021-12-10 15:47 | disposition home or self-care (01) ==
LOC: 3BNU → SUATTDRO 22:08
PROVIDERS: ADMIT Internal Medicine; ATTEND Internal Medicine

== ENCOUNTER 2022-03-31 11:49 | Observation (INO) ==
[2022-03-31] MEDS ORDERED: Ondansetron 4 MG/2 ML VIAL IVP STA ×3 (12:36→17:27)
[2022-03-31] MEDS ORDERED: Morphine Sulfate 2 MG/ML SYRINGE IVP ONE ×2 (12:36→17:27)
[2022-03-31] MEDS ORDERED: 0.9 % Sodium Chloride 1,000 ML IV ONE (12:36)
[2022-03-31 12:52] LABS: Basophils # 0.1 K/mcL (0.0-0.2); Basophils % 0.6 %; Eosinophils # 0.8 K/mcL (0.0-0.6); Eosinophils % 6.9 %; Hematocrit 35.9 % (35.3-44.9); Hemoglobin 11.5 g/dL (11.5-15.4); Immature Granulocytes % 0.4 % (0-4); Lymphocytes # 3.1 K/mcL (0.6-4.6); Lymphocytes % 25.6 %; Mean Corpuscular Hemoglobin 32.4 pg (28.0-33.3); Mean Corpuscular Volume 101.1 fL (83.0-100.0); Mean Platelet Volume 10.7 fL (9.4-12.4); Monocytes # 1.2 K/mcL (0.0-1.3); Neutrophils # 6.8 K/mcL (1.6-8.9); Platelet Count 225 K/mcL (140-400); Red Blood Count 3.55 M/mcL (3.82-4.97); Red Cell Distribution Width 13.9 % (11.5-14.5); Segmented Neutrophils % 56.5 %
[2022-03-31 13:21] LABS: Troponin I < 0.03 ng/mL (< 0.04)
[2022-03-31 14:12] LABS: Influenza A PCR Negative (Negative); Influenza B PCR Negative (Negative); Resp. Syncytial Virus PCR Negative (Negative)
[2022-03-31 14:19] LABS: Alanine Aminotransferase 12 Units/L (7-52); Albumin 4.7 g/dL (3.5-5.7); Albumin/Globulin Ratio 2.2 (1.1-2.2); Alkaline Phosphatase 77 Units/L (34-104); Aspartate Amino Transferase 20 Units/L (13-39); BUN/Creatinine Ratio 14 (6-26); Bilirubin,Direct 0.2 mg/dL (0.0-0.2); Bilirubin,Indirect 1.5 mg/dL (0.0-1.0); Bilirubin,Total 1.7 mg/dL (0.3-1.0); Blood Urea Nitrogen 13 mg/dL (8-23); Calcium 9.9 mg/dL (8.6-10.3); Carbon Dioxide 21 mEq/L (23-29); Chloride 102 mEq/L (98-107); Globulin 2.1 g/dL (2.4-3.5); Glucose 88 mg/dL (70-105); Lipase 15 Units/L (11-82); Osmolality,Calculated 284 (280-300); Potassium 4.5 mEq/L (3.5-5.1); Sodium 137 mEq/L (136-145); Total Protein 6.8 g/dL (6.4-8.9); eGFR For African Americans > 60 (> 60); eGFR For Non-African Americans 60 (> 60)
[2022-03-31 14:20] LABS: SARS-CoV-2 by PCR (In House) Negative (Negative)
[2022-03-31] MEDS ORDERED: Iopamidol - 370 500 ML MLS IVP ONE ×2 (15:01→17:27)
[2022-03-31] MEDS ORDERED: Ketorolac 30 MG/ML VIAL IVP ONE (15:42)
[2022-03-31 18:43] LABS: Acetaminophen < 10 mcg/mL (10-20); Ethanol < 10 mg/dL (Less than 10)
[2022-03-31] MEDS ORDERED: *HR* Promethazine 25 MG/ML VIAL IM ONE (19:39)
[2022-03-31] MEDS ORDERED: Pantoprazole 40 MG VIAL IVP ONE (19:39)
[2022-03-31] MEDS ORDERED: Acetaminophen 325 MG TABLET PO PRN (22:07)
[2022-03-31] MEDS ORDERED: Naloxone 0.4 MG/ML INJ IVP PRN (22:07)
[2022-03-31] MEDS ORDERED: *HR* Promethazine 25 MG/ML VIAL IM PRN (22:07)
[2022-03-31] MEDS ORDERED: Melatonin 3 MG TABLET PO PRN (22:07)
[2022-04-01 02:37] LABS: Basophils % 0.2 %; Eosinophils # 0.3 K/mcL (0.0-0.6); Eosinophils % 3.2 %; Hematocrit 32.6 % (35.3-44.9); Hemoglobin 10.3 g/dL (11.5-15.4); Immature Granulocytes % 0.3 % (0-4); Lymphocytes # 1.7 K/mcL (0.6-4.6); Lymphocytes % 18.9 %; Mean Corpuscular HGB Conc 31.6 g/dL (31.6-35.5); Mean Corpuscular Hemoglobin 32.2 pg (28.0-33.3); Mean Corpuscular Volume 101.9 fL (83.0-100.0); Mean Platelet Volume 9.8 fL (9.4-12.4); Monocytes # 0.9 K/mcL (0.0-1.3); Monocytes % 9.8 %; Neutrophils # 6.2 K/mcL (1.6-8.9); Platelet Count 220 K/mcL (140-400); Red Cell Distribution Width 13.8 % (11.5-14.5); Segmented Neutrophils % 67.6 %; White Blood Count 9.2 K/mcL (4.3-11.1)
[2022-04-01 04:02] LABS: BUN/Creatinine Ratio 14 (6-26); Blood Urea Nitrogen 12 mg/dL (8-23); Calcium 8.6 mg/dL (8.6-10.3); Carbon Dioxide 22 mEq/L (23-29); Chloride 105 mEq/L (98-107); Glucose 91 mg/dL (70-105); Magnesium 2.2 mg/dL (1.6-2.6); Osmolality,Calculated 279 (280-300); Phosphorous 3.8 mg/dL (2.7-4.5); Potassium 4.6 mEq/L (3.5-5.1); Sodium 135 mEq/L (136-145); eGFR For African Americans > 60 (> 60); eGFR For Non-African Americans > 60 (> 60)
[2022-04-01 05:14] LABS: Bilirubin,Urine Negative (Negative); Blood,Urine Negative (Negative); Clarity,Urine Clear (Clear); Color,Urine Yellow (Yellow); Glucose,Urine (UA) Normal (Normal); Ketones,Urine Negative (Negative); Leukocyte Esterase,Urine Trace (Negative); Nitrite,Urine Negative (Negative); PH,Urine 6.5 pH Units (5.0-8.0); Protein,Urine Trace mg/dL (Neg-Trace); Specific Gravity,Urine > 1.030 (1.010-1.025); Squamous Epithelial Cell,Urine Few per hpf (None-Few)
[2022-04-01] MEDS ORDERED: Pantoprazole 40 MG VIAL IVP SCH (06:00)
[2022-04-01 07:21] VITALS: O2SAT 93
[2022-04-01] MEDS ORDERED: Lidocaine -MPF 2% 5 ML VIAL ONE ×2 (10:00→10:34)
[2022-04-01] MEDS ORDERED: Simethicone 40 MG/0.6 ML MLS IR ONE (10:06)
[2022-04-01] MEDS ORDERED: Tetracaine/Benzocaine/Butamben 1 SPRAY AEROSOL MM ONE (10:23)
[2022-04-01] MEDS ORDERED: polyethylene glycoL 3350 17 GM POWD.PACK PO SCH (10:45)
[2022-04-01 11:00] VITALS: BP 136/84; PULSE 79; TEMP 98
[2022-04-01] MEDS ORDERED: lisinopriL 5 MG TABLET PO SCH (11:15)
[2022-04-01] MEDS ORDERED: Sucralfate 1 GM TABLET PO SCH (16:30)
== END 2022-04-01 12:24 | disposition home or self-care (01) ==
LOC: EMEROOARM 11:49 → 3ANU 11:49 → SUATTDRO 21:27 → 3ANU 22:30
PROVIDERS: ADMIT Internal Medicine; ATTEND Internal Medicine
PROC: ENDOEBX (2022-04-01 10:00)